=== PATIENT | male | born 1990 | race Caucasian/White ===

== ENCOUNTER 2025-08-09 07:46 | Emergency (ER) | payer SELFPAY ==
[2025-08-09] VITALS (8 sets, daily range): BP systolic 119–139; BP diastolic 74–90; PULSE 59–75; RESP 14–19; TEMP 36.5–36.6; O2SAT 97–100
--- NOTE | 2025-08-09 08:03 | ECG_ITS ---
Test Date: 2025-08-09 08:08:53 Measurements Intervals [place] Rate: 72 P: 57 OK: 151 QRS: 48 QRSD: 94 T: 33 QT: 376 QTc: 411 Interpretive Statements SINUS RHYTHM NORMAL ELECTROCARDIOGRAM No previous ECG available for comparison Electronically Signed On 08-10-2025 15:35:46 CDT by Jacob Roger M.D.
[2025-08-09 08:11] LABS: Hematocrit 48.5 % (42.0-52.0); Hemoglobin 15.9 g/dL (14.0-18.0); Immature Granulocyte Percent A 0.5 % (0-0.5); Lymphocytes Absolute Auto 2.18 K/mm3 (0.9-3.2); Mean Corpuscular HGB Conc 32.8 g/dl (32-36); Mean Corpuscular Hemoglobin 29.3 pg (26-34); Mean Corpuscular Volume 89.5 fl (80-100); Nucleated Red Blood Cells Absolute Auto 0.000 K/mm3 (0.0-0.012); Nucleated Red Blood Cells Perc 0.0 % (0.0-0.2); Platelet Count Result 180 k/mm3 (150-375); Red Blood Count 5.42 M/mm3 (4.6-6.20); White Blood Count 15.3 K/mm3 (4.5-10.0)
[2025-08-09 08:25] LABS: Alanine Aminotransferase 16 U/L (6-50); Albumin Level 4.0 g/dL (3.5-5.1); Alkaline Phosphatase 80 U/L (38-126); Anion Gap 9 mmol/L (4-12); Aspartate Amino Transferase 18 U/L (17-59); Bilirubin,Total 0.5 mg/dL (0.2-1.3); Blood Urea Nitrogen 10 mg/dL (9-20); Calcium 9.2 mg/dL (8.4-10.2); Carbon Dioxide 25 mmol/L (22-30); Chloride 100 mmol/L (98-107); Estimated CRCL calculation 140 ml/min; Estimated Glomerular Filt Rate > 60; Glucose 240 mg/dL (65-110); Magnesium 1.6 mg/dL (1.6-2.3); Potassium 3.6 mmol/L (3.4-5.0); Sodium 134 mmol/L (137-145); Total Protein 6.6 g/dL (6.3-8.2)
[2025-08-09 08:32] LABS: Beta-Hydroxybutyrate/Acetoace. 0.09 mmol/L (0.02-0.27)
[2025-08-09] MEDS: LACTATED RINGERS 1,000 ML 999 ML IV CONT ×2 (08:37)
--- NOTE | 2025-08-09 09:06 | ED.GENADULT ---
HPI - General Adult General Chief complaint: Dizziness Stated complaint: ?hyperglycemic Time Seen by Provider: 08/09/25 08:08 History of Present Illness HPI narrative: 35-year-old male present to the emergency department for evaluation for worsening generalized weakness after being noncompliant with his diabetes medications. Patient is a type 1 diabetic and states that he has been undergoing some difficult financial times. Patient states he no longer has a job and lost his house and is living in a camper. Patient states that his glucometer broke approximately 1 month ago and patient has difficulty maintaining his medications. Patient states over the last few days he did have increased urination but states that today he had onset of dizziness decreased urination and worsening generalized weakness. Patient denies any recent cough colds or fevers. Patient has tired appearing at time of evaluation. Patient does have prior history of DKA and was last admitted to [facility] approximately 1 year ago. Related Data Allergies Allergy/AdvReac Type Severity Reaction Status Date / Time No Known Allergies Allergy Verified 08/09/25 07:56 Review of Systems Review of Systems: All systems reviewed & are unremarkable except as noted in HPI and below Exam Narrative: APPEARANCE: Ill-appearing HEAD: normocephalic, atraumatic. EYES: PERRLA/EOMI, conjunctivae clear. NOSE: Normal no drainage EARS:TMS clear with good light reflex. THROAT: Pharynx clear, no exudate. NECK: Supple. No adenopathy, no masses. RESPIRATORY: Airway patent, respirations nonlabored. Clear to auscultation bilaterally, no rales, rhonchi, wheezing. CARDIOVASCULAR: Regular rate and rhythm without murmurs rubs or gallops. ABDOMINAL: Soft, nontender, nondistended, normal bowel sounds MUSCULOSKELETAL: Moves all extremities. Strength/ROM intact, No edema, No calf tenderness. NEURO: Alert. Cranial nerves II through XII intact. Good gait. Good coordination SKIN: Warm, dry. Normal Color Course Vital Signs Vital signs: Vital Signs Temperature 97.7 F 08/09/25 07:52 Pulse Rate 68 08/09/25 07:52 Respiratory Rate 17 08/09/25 07:52 Blood Pressure 126/87 08/09/25 07:52 Pulse Oximetry 100 08/09/25 07:52 Oxygen Delivery Room Air 08/09/25 07:52 Temperature 97.8 F 08/09/25 11:45 Pulse Rate 68 08/09/25 11:45 Respiratory Rate 15 08/09/25 11:45 Blood Pressure 139/81 08/09/25 11:45 Pulse Oximetry 99 08/09/25 11:45 Oxygen Delivery Room Air 08/09/25 07:52 Medical Decision Making MDM Narrative Medical decision making narrative: 35-year-old male with history diabetes presents to the emergency department for evaluation for hyperglycemia. Patient has been under her severe financial constraint and has been unable to replace his broken glucometer and patient has not been taking his insulin as he takes it on a sliding scale. Patient was not and DKA. Patient is afebrile but does have a leukocytosis of 15.3 and hemoglobin of 15.9. No acute abnormalities on the CMP than the glucose. Patient's beta hydroxybutyrate was not elevated. UA was positive for glucose but negative for ketones. Patient was negative for influenza RSV and for COVID. Patient was evaluated by care coordination and they are providing him with a coupon for discounted glucometer and strips. Patient will also be provided a bus pass for transportation. Patient was not provided a prescription for his insulin as he states he has plenty of insulin but his primary need was the glucometer and strips. Patient will also be provided follow-up with primary care physician. All questions concerns were addressed. Patient was well-appearing at time of discharge. Differential Diagnosis Differential Diagnosis: COVID, RSV, influenza, UTI, pneumonia, DKA, hyperglycemia, medication, metabolic encephalopathy Vital Signs Vital Signs: Vital Signs Temperature 97.7 F 08/09/25 07:52 Pulse Rate 68 08/09/25 07:52 Respiratory Rate 17 08/09/25 07:52 Blood Pressure 126/87 08/09/25 07:52 Pulse Oximetry 100 08/09/25 07:52 Oxygen Delivery Room Air 08/09/25 07:52 Temperature 97.8 F 08/09/25 11:45 Pulse Rate 68 08/09/25 11:45 Respiratory Rate 15 08/09/25 11:45 Blood Pressure 139/81 08/09/25 11:45 Pulse Oximetry 99 08/09/25 11:45 Oxygen Delivery Room Air 08/09/25 07:52 Lab Data Lab results reviewed: Yes I reviewed the patient's lab results. 08/09/25 07:59 08/09/25 07:59 Labs: Lab Results 08/09/25 08/09/25 08/09/25 Range/Units 07:50 07:59 08:49 WBC 15.3 H (4.5-10.0) K/mm3 RBC 5.42 (4.6-6.20) M/mm3 Hgb 15.9 (14.0-18.0) g/dL Hct 48.5 (42.0-52.0) % MCV 89.5 (80-100) fl MCH 29.3 (26-34) pg MCHC 32.8 (32-36) g/dl RDW 12.9 (11.5-14.5) % Plt Count 180 (150-375) k/mm3 MPV 10.2 (7.4-10.4) fl Immature Gran % (Auto) 0.5 (0-0.5) % Neut % (Auto) 77.8 H (45.5-73.1) % Lymph % (Auto) 14.2 L (18.3-44.2) % [place] % (Auto) 4.7 (2.6-8.5) % Eos % (Auto) 2.3 (0-4.4) % Baso % (Auto) 0.5 (0.2-1.2) % Lymph # (Auto) 2.18 (0.9-3.2) K/mm3 [place] # (Auto) 0.7 H (0.1-0.6) K/mm3 Eos # (Auto) 0.4 H (0-0.3) K/mm3 Baso # (Auto) 0.1 (0.0-0.1) K/mm3 Abs Immat Gran (auto) 0.08 H (0.00-0.031) K/mm3 Absolute Neuts (auto) 11.9 H (1.3-6.7) K/mm3 Absolute Nucleated RBC 0.000 (0.0-0.012) K/mm3 Nucleated RBC % 0.0 (0.0-0.2) % Sodium 134 L (137-145) mmol/L Potassium 3.6 (3.4-5.0) mmol/L Chloride 100 (98-107) mmol/L Carbon Dioxide 25 (22-30) mmol/L Anion Gap 9 (4-12) mmol/L BUN 10 (9-20) mg/dL Creatinine 0.77 (0.7-1.3) mg/dL Estim Creat Clear Calc 140 ml/min Estimated GFR > 60 (59 - ) Glucose 240 H (65-110) mg/dL POC Capillary Glucose 243 H (65-105) mg/dl Calcium 9.2 (8.4-10.2) mg/dL Phosphorus 3.7 (2.5-4.5) mg/dL Magnesium 1.6 (1.6-2.3) mg/dL Total Bilirubin 0.5 (0.2-1.3) mg/dL AST 18 (17-59) U/L ALT 16 (6-50) U/L Alkaline Phosphatase 80 (38-126) U/L Total Protein 6.6 (6.3-8.2) g/dL Albumin 4.0 (3.5-5.1) g/dL Beta-Hydroxybutyrate/Acetoacetate 0.09 (0.02-0.27) mmol/L Urine Color (Yellow) Urine Appearance (Clear) Urine pH (5.0-9.0) Ur Specific [place] (1.001-1.035) Urine Protein (Negative) mg/dL Urine Glucose (UA) (Negative) mg/dL Urine Ketones (Negative) mg/dL Ur Blood (Man) (Negative) Urine Nitrate (Negative) Urine Bilirubin (Negative) Urine Urobilinogen (<2.0) mg/dL Leukocyte Esterase Rfl (Negative) BOOKER/UL Influenza A (RT-PCR) Negative (Negative) Influenza B (RT-PCR) Negative (Negative) RSV (RT-PCR) Negative (Negative) SARS-CoV-2 RNA (RT-PCR) Negative (Negative) 08/09/25 08/09/25 Range/Units 09:14 11:56 WBC (4.5-10.0) K/mm3 RBC (4.6-6.20) M/mm3 Hgb (14.0-18.0) g/dL Hct (42.0-52.0) % MCV (80-100) fl MCH (26-34) pg MCHC (32-36) g/dl RDW (11.5-14.5) % Plt Count (150-375) k/mm3 MPV (7.4-10.4) fl Immature Gran % (Auto) (0-0.5) % Neut % (Auto) (45.5-73.1) % Lymph % (Auto) (18.3-44.2) % [place] % (Auto) (2.6-8.5) % Eos % (Auto) (0-4.4) % Baso % (Auto) (0.2-1.2) % Lymph # (Auto) (0.9-3.2) K/mm3 [place] # (Auto) (0.1-0.6) K/mm3 Eos # (Auto) (0-0.3) K/mm3 Baso # (Auto) (0.0-0.1) K/mm3 Abs Immat Gran (auto) (0.00-0.031) K/mm3 Absolute Neuts (auto) (1.3-6.7) K/mm3 Absolute Nucleated RBC (0.0-0.012) K/mm3 Nucleated RBC % (0.0-0.2) % Sodium (137-145) mmol/L Potassium (3.4-5.0) mmol/L Chloride (98-107) mmol/L Carbon Dioxide (22-30) mmol/L Anion Gap (4-12) mmol/L BUN (9-20) mg/dL Creatinine (0.7-1.3) mg/dL Estim Creat Clear Calc ml/min Estimated GFR (59 - ) Glucose (65-110) mg/dL POC Capillary Glucose 205 H (65-105) mg/dl Calcium (8.4-10.2) mg/dL Phosphorus (2.5-4.5) mg/dL Magnesium (1.6-2.3) mg/dL Total Bilirubin (0.2-1.3) mg/dL AST (17-59) U/L ALT (6-50) U/L Alkaline Phosphatase (38-126) U/L Total Protein (6.3-8.2) g/dL Albumin (3.5-5.1) g/dL Beta-Hydroxybutyrate/Acetoacetate (0.02-0.27) mmol/L Urine Color Yellow (Yellow) Urine Appearance Clear (Clear) Urine pH 5.5 (5.0-9.0) Ur Specific [place] 1.012 (1.001-1.035) Urine Protein Negative (Negative) mg/dL Urine Glucose (UA) 3+ H (Negative) mg/dL Urine Ketones Negative (Negative) mg/dL Ur Blood (Man) Negative (Negative) Urine Nitrate Negative (Negative) Urine Bilirubin Negative (Negative) Urine Urobilinogen 0.2 (<2.0) mg/dL Leukocyte Esterase Rfl Negative (Negative) B[place]/UL Influenza A (RT-PCR) (Negative) Influenza B (RT-PCR) (Negative) RSV (RT-PCR) (Negative) SARS-CoV-2 RNA (RT-PCR) (Negative) Discharge Plan Discharge Clinical Impression: Weakness, Dehydration, Noncompliance with medication regimen Patient Disposition: Home Condition: Stable Instructions: Antibiotic Form Additional Instructions: Closely monitor your blood sugar and treat your hyperglycemia as directed. Have close follow-up with primary care physician. If you have any worsening symptoms please call or return to the emergency department. Patient Language: Stateless Follow-up/Referrals: PHYSICIAN NOT ON STAFF,NONSTAFF [Primary Care Provider] Laci Huynh MD [Physician, Family Practice]
[2025-08-09 09:19] LABS: Add Urine Microscopic? NO; Appearance Urine Clear (Clear); Glucose Urine UA 3+ mg/dL (Negative); Leukocyte Esterase Ur Negative LEU/UL (Negative); Nitrate Urine Negative (Negative); Specific Grav Ur 1.012 (1.001-1.035)
[2025-08-09 09:30] LABS: Influenza A QL RT-PCR Negative (Negative); Influenza B QL RT-PCR Negative (Negative); RSV RNA, RT-PCR Negative (Negative); SARS-CoV-2 RNA PCR Negative (Negative)
--- OUTSIDE RECORDS SUMMARY | 2025-08-09 09:37 | XMS_ITS | Patient Health Record ---
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 every day How many cigarettes a day do you smoke? 11-20 How soon after you wake up d o you smoke your first cigarette? within 5 minutes Are you interested in quitting? Thinking about q uitting Additional Findings: Tobacco User Modera te cigarette smoker (10-19 cigs/day) Alcohol Screen (Audit-C) Question Answer Notes Did you have a drink containing alcohol in the p ast year? No Points 0 Interpretation Negative Sexual History Question Answer Notes Had sex in the past 12 months (vaginal, oral, or anal)? Yes with Women only Use protection? No Have you ever had a Sexually transmitted disease ? 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 Problem History of diabetes mellitus (885311377) Hx of diabetes mellitus (Z86.39) Active confirmed Plan Of Treatment No Information Insurance Providers Payer Name Payer Address Payer Phone Subscriber Number Group Number Insured Name Patient Relationship to Insured Coverage Start Date Coverage End Date [address] [id number] Sachin Lemons Self - patient is the insured Medical (General) History Medical History History ICD Code DM Manic Depression Rt eye Cataract Surgical History Surgery Date(Month/Year) Appedix removed 2004 Hospitalization History Reason Date(Month/Year) Suicide 05/17
--- NOTE | 2025-08-09 10:11 | PC.NURSE ---
Armani, Care Coordination, made aware of consult placed by Dr. Frederick.
== END 2025-08-09 12:30 | disposition home or self-care (01) ==
PROVIDERS: Emergency Provider Emergency Medicine
DX: R53.1 Weakness (principal); E86.0 Dehydration; T38.3X6A Underdosing of insulin and oral hypoglycemic [antidiabetic] drugs, initial encounter; Z91.141 Patient's other noncompliance with medication regimen due to financial hardship; E10.9 Type 1 diabetes mellitus without complications; Z20.822 Contact with and (suspected) exposure to COVID-19
CPT/HCPCS: 36415; 80053; 81003; 82010; 82948; 83735; 84100; 85025; 87637; 93005; 96360; 99283; J7120